=== PATIENT | female | born 1950 | race African-American/Black ===

== ENCOUNTER → 2019-05-18 | Outpatient (CLI) | payer OTHER | LOC: YHH 11:09 ==

== ENCOUNTER 2022-09-06 09:00 | Emergency (ER) | payer BC, OTHER ==
[2022-09-06 09:12] VITALS: BP 138/82; PULSE 96; RESP 16; TEMP 98.3; BMI 30.2
[2022-09-06 11:57] LABS: EOS % 2.5 % (0-4.5); HEMATOCRIT 38.5 % (32.4-45.2); HEMOGLOBIN 12.3 GM/dL (10.7-15.3); LYMPH % 29.4 % (8-40); MCHC 31.9 g/dl (32.0-36.0); MEAN CELL VOLUME 81.4 fl (80-96); MEAN PLT VOLUME 8.4 fl (7.5-11.1); MONO % 12.6 % (3.8-10.2); NEUT % 54.5 % (42.8-82.8); PLATELET COUNT 211 10^3/uL (134-434); RBC 4.73 M/mm3 (3.60-5.2); RDW 13.4 % (11.6-15.6); WHITE BLOOD COUNT 5.2 K/mm3 (4.0-10.0)
[2022-09-06] MEDS ORDERED: predniSONE 20 MG TABLET (UD) PO ONE (12:06)
[2022-09-06] MEDS ORDERED: predniSONE 20 MG TABLET (UD) ONE (12:09)
[2022-09-06] MEDS ORDERED: predniSONE 10 MG TABLET (UD) ONE (12:09)
[2022-09-06 12:22] LABS: CALCIUM 9.4 mg/dL (8.5-10.1)
[2022-09-06 12:23] LABS: ALBUMIN 3.8 g/dl (3.4-5.0); BLOOD UREA NITROGEN 11.7 mg/dL (7-18)
[2022-09-06 12:27] LABS: TOT PROT 7.3 g/dl (6.4-8.2)
[2022-09-06 12:28] LABS: BILIRUBIN,TOTAL 0.6 mg/dL (0.2-1)
[2022-09-07] MEDS ORDERED: predniSONE 20 MG TABLET (UD) PO ONE (12:06)
== END 2022-09-06 12:13 | disposition left against medical advice (07) ==
LOC: JER 09:00
DX: R06.02 Shortness of breath (principal); R05.1 Acute cough
CPT/HCPCS: 0241U-QW; 36415; 71046-TC-FY; 80053; 84484; 85025; 93005; 93010; 99285-25

== ENCOUNTER 2023-09-19 00:21 | Emergency (ER) | payer OTHER ==
[2023-09-19 00:45] VITALS: BMI 27.1
[2023-09-19] MEDS ORDERED: morphine CARPU-JECT 2 MG/1 ML DISP.SYRIN IVPUSH ONE (01:06)
[2023-09-19 01:16] VITALS: TEMP 99.1
[2023-09-19 01:31] LABS: BASO % 0.3 % (0-2.0); EOS % 0.3 % (0-4.5); HEMATOCRIT 35.6 % (32.4-45.2); HEMOGLOBIN 11.5 GM/dL (10.7-15.3); LYMPH % 5.6 % (8-40); MCHC 32.3 g/dl (32.0-36.0); MEAN CELL VOLUME 80.7 fl (80-96); MEAN PLT VOLUME 7.7 fl (7.5-11.1); MONO % 6.1 % (3.8-10.2); NEUT % 87.7 % (42.8-82.8); PLATELET COUNT 291 10^3/uL (134-434); RBC 4.42 M/mm3 (3.60-5.2); RDW 14.4 % (11.6-15.6); WHITE BLOOD COUNT 11.8 K/mm3 (4.0-10.0)
[2023-09-19 01:38] LABS: INR 1.02 (0.83-1.09); PROTHROMBIN TIME (PATIENT) 11.8 SEC (9.7-13.0)
[2023-09-19 02:04] LABS: POTASSIUM 4.1 mmol/L (3.5-5.1)
[2023-09-19 02:06] LABS: ALBUMIN 3.6 g/dl (3.4-5.0); BLOOD UREA NITROGEN 11.9 mg/dL (7-18); CALCIUM 8.7 mg/dL (8.5-10.1)
[2023-09-19 02:09] LABS: CREATININE 1.2 mg/dL (0.55-1.3)
[2023-09-19 02:11] LABS: BILIRUBIN,TOTAL 0.3 mg/dL (0.2-1)
[2023-09-19] MEDS ORDERED: MIDAZOLAM HCL 2 MG/2 ML SINGLE DOSE VIAL IVPUSH ONE (04:01)
[2023-09-19] MEDS ORDERED: MIDAZOLAM HCL 2 MG/2 ML SINGLE DOSE VIAL ONE (04:20)
[2023-09-19] MEDS ORDERED: DOXYCYCLINE HYCLATE 100 MG CAPSULE PO ONE ×2 (05:37→05:45)
[2023-09-19 06:00] VITALS: BP 127/79; PULSE 99; RESP 21
== END 2023-09-19 06:06 | disposition home or self-care (01) ==
LOC: JER 00:21
PROC: 3E033GC Introduction of Other Therapeutic Substance into Peripheral Vein, Percutaneous Approach (ICD-10-PCS; principal; 2023-09-19)
PROC: 3E033GC Introduction of Other Therapeutic Substance into Peripheral Vein, Percutaneous Approach (ICD-10-PCS; 2023-09-19)
DX: R06.02 Shortness of breath (principal); R07.9 Chest pain, unspecified; J18.9 Pneumonia, unspecified organism; M79.602 Pain in left arm
CPT/HCPCS: 36415; 71046-TC-FY; 71275-TC; 80053; 83690; 84484; 85025; 85610; 93005; 93010; 96374; 96375; 99285-25; Q9967

== ENCOUNTER 2023-09-23 09:02 | Emergency (ER) | payer OTHER ==
[2023-09-23 09:16] VITALS: BP 120/75; PULSE 100; RESP 22; TEMP 98.8; BMI 26.7
== END 2023-09-23 13:41 | disposition home or self-care (01) ==
LOC: JER 09:02
DX: R05.9 Cough, unspecified (principal); R06.02 Shortness of breath; J18.9 Pneumonia, unspecified organism; J44.9 Chronic obstructive pulmonary disease, unspecified
CPT/HCPCS: 71046-TC-FY; 93005; 93010; 99284-25

== ENCOUNTER 2023-10-27 11:39 | Emergency (ER) | payer OTHER ==
[2023-10-27 11:51] VITALS: RESP 20; TEMP 98.6; BMI 28.5
[2023-10-27] MEDS ORDERED: methylPREDNISolone NA SUCC 125 MG/2 ML VIAL ONE (13:21)
[2023-10-27] MEDS: methylPREDNISolone NA SUCC 125 MG/2 ML VIAL IVPUSH ONE (13:41)
[2023-10-27] MEDS: ALBUTEROL SO4 2.5/IPRATROPIUM 0.5 INH SOL 3 ML VIAL.NEB. NEB SCH (13:50)
[2023-10-27 13:52] LABS: VENOUS BASE EXCESS 2.7 mmol/L (-2-2); VENOUS O2 SATURATION 42.9 % (70-80); VENOUS PCO2 46.1 mmHg (38-52); VENOUS PH 7.402 (7.310-7.410)
[2023-10-27 13:53] LABS: BASO % 0.9 % (0-2.0); EOS % 1.8 % (0-4.5); HEMATOCRIT 37.6 % (32.4-45.2); HEMOGLOBIN 12.1 GM/dL (10.7-15.3); LYMPH % 15.4 % (8-40); MCH 25.9 pg (25.7-33.7); MCHC 32.2 g/dl (32.0-36.0); MEAN CELL VOLUME 80.5 fl (80-96); MONO % 9.8 % (3.8-10.2); NEUT % 72.1 % (42.8-82.8); PLATELET COUNT 266 10^3/uL (134-434); RBC 4.67 M/mm3 (3.60-5.2); RDW 14.5 % (11.6-15.6); WHITE BLOOD COUNT 7.4 K/mm3 (4.0-10.0)
[2023-10-27 14:27] LABS: POTASSIUM 3.3 mmol/L (3.5-5.1)
[2023-10-27 14:29] LABS: ALBUMIN 3.8 g/dl (3.4-5.0); BLOOD UREA NITROGEN 9.3 mg/dL (7-18); CALCIUM 9.6 mg/dL (8.5-10.1)
[2023-10-27 14:30] LABS: MAGNESIUM 2.1 mg/dL (1.8-2.4)
[2023-10-27 14:32] LABS: CREATININE 0.9 mg/dL (0.55-1.3)
[2023-10-27 14:34] LABS: BILIRUBIN,TOTAL 0.5 mg/dL (0.2-1); TOT PROT 7.6 g/dl (6.4-8.2)
[2023-10-27] MEDS: LORazepam 2 MG TABLET PO ONE (16:03)
[2023-10-27] MEDS ORDERED: LORazepam 1 MG TABLET ONE (16:03)
[2023-10-27 16:17] VITALS: BP 127/83; PULSE 70
== END 2023-10-27 18:00 | disposition left against medical advice (07) ==
LOC: JER 11:39
PROC: 3E033NZ Introduction of Analgesics, Hypnotics, Sedatives into Peripheral Vein, Percutaneous Approach (ICD-10-PCS; principal; 2023-10-27)
PROC: 3E0F7GC Introduction of Other Therapeutic Substance into Respiratory Tract, Via Natural or Artificial Opening (ICD-10-PCS; 2023-10-27)
DX: R06.02 Shortness of breath (principal); R05.9 Cough, unspecified; J44.1 Chronic obstructive pulmonary disease with (acute) exacerbation; J18.9 Pneumonia, unspecified organism; Z20.822 Contact with and (suspected) exposure to COVID-19
CPT/HCPCS: 0241U-QW; 36415; 71046-TC-FY; 71250-TC; 80053; 82803; 83735; 84484; 85025; 93005; 93010; 94640; 96374; 99285-25

== ENCOUNTER 2024-10-25 11:42 | Inpatient (IN) | payer OTHER ==
[2024-10-25 12:22] VITALS: BMI 28.3
[2024-10-25] MEDS ORDERED: ALBUTEROL SO4 2.5/IPRATROPIUM 0.5 INH SOL 3 ML VIAL.NEB. NEB ONE (12:34)
[2024-10-25] MEDS: ALBUTEROL SO4 2.5/IPRATROPIUM 0.5 INH SOL 3 ML VIAL.NEB. NEB ONE (12:48)
[2024-10-25 12:54] LABS: BASO % 0.3 % (0-2.0); EOS % 0.2 % (0-4.5); HEMATOCRIT 38.2 % (32.4-45.2); HEMOGLOBIN 12.1 GM/dL (10.7-15.3); LYMPH % 7.9 % (8-40); MCH 26.1 pg (25.7-33.7); MCHC 31.6 g/dl (32.0-36.0); MEAN CELL VOLUME 82.6 fl (80-96); MEAN PLT VOLUME 8.3 fl (7.5-11.1); MONO % 5.5 % (3.8-10.2); NEUT % 86.1 % (42.8-82.8); PLATELET COUNT 192 10^3/uL (134-434); RBC 4.62 M/mm3 (3.60-5.2); RDW 14.7 % (11.6-15.6); WHITE BLOOD COUNT 7.9 K/mm3 (4.0-10.0)
[2024-10-25 12:59] LABS: INR 1.04 (0.83-1.09); PROTHROMBIN TIME (PATIENT) 11.4 SEC (9.7-13.0)
[2024-10-25 13:02] LABS: ACTIVATED PTT 37.1 SECONDS (25.2-36.5)
[2024-10-25 13:08] LABS: POTASSIUM 4.3 mmol/L (3.5-5.1)
[2024-10-25 13:10] LABS: CALCIUM 9.2 mg/dL (8.5-10.1)
[2024-10-25 13:11] LABS: ALBUMIN 3.5 g/dl (3.4-5.0); BLOOD UREA NITROGEN 16.2 mg/dL (7-18)
[2024-10-25] MEDS ORDERED: CEFTRIAXONE 1 G/50 ML PREMIX 50 ML IVPB ONE (13:13)
[2024-10-25 13:15] LABS: BILIRUBIN,TOTAL 0.6 mg/dL (0.2-1); TOT PROT 7.4 g/dl (6.4-8.2)
[2024-10-25] MEDS: CEFTRIAXONE 1 GM in DEXTROSE 5%-WATER - 100 ML IVPB ONE (13:20)
[2024-10-25 13:28] LABS: VENOUS BASE EXCESS -0.3 mmol/L (-2-2); VENOUS O2 SATURATION 20.6 % (70-80); VENOUS PCO2 46.6 mmHg (38-52); VENOUS PH 7.356 (7.310-7.410)
[2024-10-25] MEDS ORDERED: AZITHROMYCIN IVPB 500 MG/250 ML BAG IVPB ONE (14:17)
[2024-10-25] MEDS: AZITHROMYCIN IVPB 500 MG in DEXTROSE 5%-WATER - 250 ML IVPB ONE (14:23)
[2024-10-25] MEDS ORDERED: ATORVASTATIN CA 20 MG TABLET (FP) ONE (14:53)
[2024-10-25] MEDS ORDERED: amLODIPine BESYLATE 10 MG TABLET (FP) ONE (14:53)
[2024-10-25] MEDS ORDERED: methylPREDNISolone NA SUCC 40 MG/1 ML VIAL ONE (14:53)
[2024-10-25] MEDS ORDERED: CLOPIDOGREL BISULFATE 75 MG TABLET (FP) ONE (14:53)
[2024-10-25] MEDS: ATORVASTATIN CA 20 MG TABLET (FP) PO ONE (15:01)
[2024-10-25] MEDS: CLOPIDOGREL BISULFATE 75 MG TABLET (FP) PO ONE (15:01)
[2024-10-25] MEDS: amLODIPine BESYLATE 10 MG TABLET (FP) PO ONE (15:01)
[2024-10-25] MEDS: methylPREDNISolone NA SUCC 40 MG/1 ML VIAL IVPUSH SCH (15:01)
[2024-10-25] MEDS: ACETAMINOPHEN 325 MG TABLET (FP) PO PRN (18:36)
[2024-10-25] MEDS: OSELTAMIVIR PHOSPHATE 75 MG CAPSULE PO SCH (22:02)
[2024-10-26 08:58] LABS: BASO % 0.1 % (0-2.0); HEMATOCRIT 37.2 % (32.4-45.2); HEMOGLOBIN 12.3 GM/dL (10.7-15.3); LYMPH % 7.5 % (8-40); MCH 26.9 pg (25.7-33.7); MEAN CELL VOLUME 81.6 fl (80-96); MEAN PLT VOLUME 8.3 fl (7.5-11.1); MONO % 4.2 % (3.8-10.2); NEUT % 88.2 % (42.8-82.8); PLATELET COUNT 188 10^3/uL (134-434); RBC 4.56 M/mm3 (3.60-5.2); RDW 14.6 % (11.6-15.6); WHITE BLOOD COUNT 9.4 K/mm3 (4.0-10.0)
[2024-10-26 09:21] LABS: POTASSIUM 4.4 mmol/L (3.5-5.1)
[2024-10-26 09:25] LABS: CALCIUM 9.4 mg/dL (8.5-10.1)
[2024-10-26 09:26] LABS: ALBUMIN 3.4 g/dl (3.4-5.0); BLOOD UREA NITROGEN 20.6 mg/dL (7-18)
[2024-10-26 09:30] LABS: BILIRUBIN,TOTAL 0.5 mg/dL (0.2-1); TOT PROT 7.8 g/dl (6.4-8.2)
[2024-10-26] MEDS: ISOSORBIDE MONONITRATE 30 MG TAB.SR.24H (FP) PO SCH (10:18)
[2024-10-26] MEDS: amLODIPine BESYLATE 10 MG TABLET (FP) PO SCH (10:18)
[2024-10-26] MEDS: CLOPIDOGREL BISULFATE 75 MG TABLET (FP) PO SCH (10:18)
[2024-10-26] MEDS: AZITHROMYCIN IVPB 500 MG/250 ML BAG IVPB SCH (10:19)
[2024-10-26] MEDS: ASPIRIN 81 MG CHEWABLE TABLETS PO SCH (10:19)
[2024-10-26] MEDS: CEFTRIAXONE 1 G/50 ML PREMIX 50 ML IVPB SCH (10:19)
[2024-10-26] MEDS: FLUTICASONE/UMECLIDIN/VILANTER(200-62.5-25 TRELEGY ELLIPTA) INAHLER IH SCH (10:25)
[2024-10-26] MEDS: guaiFENesin 600 MG TABLET.ER (FP) PO SCH (12:23)
[2024-10-26] MEDS: ATORVASTATIN CA 20 MG TABLET (FP) PO SCH (22:07)
[2024-10-28] MEDS: ALBUTEROL SO4 2.5/IPRATROPIUM 0.5 INH SOL 3 ML VIAL.NEB. NEB PRN (09:34)
[2024-10-28] MEDS: methylPREDNISolone NA SUCC 40 MG/1 ML VIAL IVPUSH SCH (21:58)
[2024-10-30 07:02] VITALS: RESP 18
[2024-10-30 13:38] VITALS: BP 123/86; PULSE 100; TEMP 97.7
== END 2024-10-30 18:23 | disposition home or self-care (01) | DRG 195 ==
LOC: JER 11:42 → JERBED 14:13 → J7W 15:39 → OBSVTOIN 10-26 11:30
PROVIDERS: ADMIT Internal Medicine; ATTEND Internal Medicine
DX: J10.1 Influenza due to other identified influenza virus with other respiratory manifestations (principal); K57.90 Diverticulosis of intestine, part unspecified, without perforation or abscess without bleeding; I25.2 Old myocardial infarction; J44.9 Chronic obstructive pulmonary disease, unspecified; I25.10 Atherosclerotic heart disease of native coronary artery without angina pectoris; M32.9 Systemic lupus erythematosus, unspecified; J18.9 Pneumonia, unspecified organism; R91.1 Solitary pulmonary nodule; Z86.718 Personal history of other venous thrombosis and embolism
CPT/HCPCS: 0241U-QW; 36415; 71045-TC-FY; 71250-TC; 80053; 82803; 84484; 85025; 85610; 85730; 87899; 93005; 93010; 94640; 94761; 99285-25; G0378